=== PATIENT | male | born 1975 | race Caucasian/White ===

== ENCOUNTER 2022-05-20 13:03 | Emergency (ER) | payer MEDICAID ==
[~2022-05-20] VITALS: Ht 170.2 cm; Wt 95.5 kg
[2022-05-20] MEDS ORDERED: LIDOCAINE 1% 10 ML VIAL IM ONE (14:30)
[2022-05-20] MEDS ORDERED: LIDOCAINE 1% 10 ML VIAL ONE (14:31)
[2022-05-20] MEDS ORDERED: HYDROmorphone HCL 2 MG/ML SYRINGE IVP ONE (14:45)
[2022-05-20] MEDS ORDERED: METOCLOPRAMIDE HCL 5 MG/ML 2 ML VIAL IVP ONE (14:45)
[2022-05-20] MEDS ORDERED: SODIUM CHLORIDE 0.9% 1,000 ML IV ONE (14:45)
[2022-05-20] MEDS ORDERED: PERTUSS(ACELL),DIPH,TET VAC/PF 0.5 ML SYRINGE IM. ONE (15:00)
[2022-05-20] MEDS ORDERED: CeFAZolin 1 GM/DEXTROSE 50 ML IV ONE (15:00)
[2022-05-20] MEDS ORDERED: BACITRACIN 0.9 GM PACKET OINTMENT TP ONE (15:00)
[2022-05-20] MEDS ORDERED: CEPH-558 PO (15:59)
[2022-05-20] MEDS ORDERED: ACET-784 PO (16:00)
[2022-05-20 16:05] VITALS: BP 145/97
== END 2022-05-20 16:37 | disposition home or self-care (01) ==
LOC: EMS 13:05
DX: T14.8XXA Other injury of unspecified body region, initial encounter (principal); W31.89XA Contact with other specified machinery, initial encounter; Y93.89 Activity, other specified; Y92.89 Other specified places as the place of occurrence of the external cause; Y99.8 Other external cause status
CPT/HCPCS: 99284; 96365; 96375; 96361; 73130; 90715; 90471; 12004; J0690; J1170; J2765; J3490; J7030

== ENCOUNTER 2022-05-20 18:15 | Emergency (ER) | payer MEDICAID ==
[~2022-05-20] VITALS: Ht 167.6 cm; Wt 90.9 kg
[~2022-05-20 18:15] MED LIST: ACET-784 PO; CEPH-558 PO
[2022-05-20 18:17] VITALS: BP 158/95
== END 2022-05-20 19:25 | disposition home or self-care (01) ==
LOC: EMS 18:20
DX: Z48.00 Encounter for change or removal of nonsurgical wound dressing (principal)
CPT/HCPCS: 99282; Z7502

== ENCOUNTER 2022-05-22 11:00 | Emergency (ER) | payer MEDICAID ==
[~2022-05-22] VITALS: Ht 170.2 cm; Wt 95.5 kg
[2022-05-22 11:17] VITALS: BP 155/95
[2022-05-22] MEDS ORDERED: METF-1211 PO (11:23)
== END 2022-05-22 13:34 | disposition home or self-care (01) ==
LOC: EMS 11:06
DX: S61.411A Laceration without foreign body of right hand, initial encounter (principal); E11.9 Type 2 diabetes mellitus without complications; X58.XXXA Exposure to other specified factors, initial encounter; Y93.89 Activity, other specified; Y92.89 Other specified places as the place of occurrence of the external cause; Y99.8 Other external cause status
CPT/HCPCS: 99281; Z7502